=== PATIENT | female | born 1980 | race Caucasian/White ===

== ENCOUNTER 2016-11-27 06:22 | Day surgery (SDC) | payer OTHER ==
[~2016-11-27] VITALS: Ht 154.9 cm; Wt 65.8 kg
[2016-11-27 06:38] VITALS: BP 123/74
[2016-11-27 13:37] VITALS: BP 117/72
== END 2016-11-27 13:35 | disposition home or self-care (01) ==
LOC: DS 06:22 → OR 08:30 → DS 08:30
PROVIDERS: Surgery
PROC: 0FT44ZZ Resection of Gallbladder, Percutaneous Endoscopic Approach (ICD-10-PCS; principal; 2016-11-27 08:30)
DX: K80.10 Calculus of gallbladder with chronic cholecystitis without obstruction (principal); K42.9 Umbilical hernia without obstruction or gangrene
CPT/HCPCS: J0330; J0690; J1170; J2250; J2405; J2704; J2710; J3010; J3490; J7030; J7120